=== PATIENT | female | born 1995 | race African-American/Black ===

== ENCOUNTER 2023-03-06 19:06 | Emergency (ER) | payer BC, SELFPAY ==
[2023-03-06] VITALS (9 sets, daily range): BP systolic 118–136; BP diastolic 68–97; PULSE 65–88; RESP 16; TEMP 36.2–36.7; O2SAT 98–100; BMI 23.2
--- NOTE | 2023-03-06 19:33 | ED.GENADULT ---
HPI - General Adult General Time Seen by Provider: 19:33 Date Seen: 03/06/23 Chief complaint: Nausea/Vomiting Stated complaint: 10 wks , nausea and vomiting Time Seen by Provider: 03/06/23 19:33 Source: patient and RN notes reviewed Mode of arrival: ambulatory Limitations: no limitations History of Present Illness HPI narrative: This 27-year-old female is coming in about 10 weeks , started with severe nausea vomiting yesterday. She has had prior pregnancies and states she has had hyperemesis throughout both pregnancies. She states this is very typical for her. She does not have an OB appointment scheduled until the 16 of this month. She states [facility] typically has not worked for her but does not remember any of the things that they tried for her. She cannot keep anything down, is her other child currently. She states she is getting cramps she believes from being dehydrated. Denies any urinary symptoms, no fevers. No abdominal pain. No cramping or vaginal discharge, no vaginal bleeding. I did look in our system and does not look like she is seen our obstetrical department before. Related Data Home Medications Medication Instructions Recorded Confirmed No Known Home Medications 03/06/23 03/06/23 Allergies Allergy/AdvReac Type Severity Reaction Status Date / Time No Known Drug Allergies Allergy Verified 03/06/23 19:23 Review of Systems Status of ROS: Reports: 6 or more systems reviewed and unremarkable except as noted in History and below [facility] Medical History (Updated 03/06/23 @ 23:17 by Anjana Young MD) No significant past medical history Surgical History No significant past surgical history Social History Smoking Status: Never smoker Second hand tobacco smoke exposure: No How often do you have a drink containing alcohol: never How often do you have six or more drinks on one occasion: Never AUDIT-C Alcohol total score: 0 Non-prescribed substance use: denies use Exam Const: Vital Signs, click to edit/add: Vital Signs - 24 hr 03/06/23 19:28 03/06/23 19:35 03/06/23 21:22 Temperature 97.1 F L 98.0 F Pulse Rate Pulse Rate [Right Pulse Oximeter] 82 79 Respiratory Rate 16 16 Blood Pressure Blood Pressure [Ri ght Upper Arm] 118/68 118/74 Pulse Oximetry 99 99 100 Oxygen Delivery Me thod Room Air Room Air 03/06/23 21:22 03/06/23 21:32 03/06/23 21:59 Temperature Pulse Rate 65 73 74 Pulse Rate [Right Pulse Oximeter] Respiratory Rate 16 16 16 Blood Pressure 119/74 136/97 H 123/87 Blood Pressure [Ri ght Upper Arm] Pulse Oximetry 100 99 100 Oxygen Delivery Me thod 03/06/23 22:02 Temperature Pulse Rate 88 Pulse Rate [Right Pulse Oximeter] Respiratory Rate 16 Blood Pressure 125/81 Blood Pressure [Ri ght Upper Arm] Pulse Oximetry 100 Oxygen Delivery Me thod Patient is throwing up bilious material before medicines were given. She is alert, interactive but looks like she does not feel well. Speech is normal, certainly pleasant 27-year-old female. Sclera clear, conjugate gaze. Lungs are clear, no wheezing crackles. CV regular rate and rhythm, no murmur, normal S1-S2, no S3-S4. Abdomen is soft, nontender nondistended, no rebound or guarding. Documenting provider has reviewed patient's vital signs: yes Course Reevaluation(s) Time of Reevaluation #1: 22:01 Reevaluation #1: Patient has received total of 2L fluids, 8mg total IV Zofran in 2 doses plus 25mg IV diphenhydramine. Did get up to to restroom after 3 L was initiated, this was done as her bicarb was low at 18. She is still feeling nauseated, will see if she can tolerate 10 mg oral metoclopramide. Did review some current literature which is recommending metoclopramide for treatment this early in . Time of Reevaluation #2: 23:16 Reevaluation #2: Patient is up, ambulatory, does look a bit better. Went over discharge plan with her, it is absolutely necessary that she contact her OB Clinic 1st thing in the morning. Vital Signs Vital signs: Initial Vital Signs Temperature 97.1 F L 03/06/23 19:28 Temperature Source Temporal Artery Scan 03/06/23 19:28 Pulse Rate 82 03/06/23 19:28 Pulse Rhythm Regular 03/06/23 19:28 Respiratory Rate 16 03/06/23 19:28 Blood Pressure 118/68 03/06/23 19:28 Blood Pressure Mean 84 03/06/23 19:28 Blood Pressure Position Sitting 03/06/23 19:28 Pulse Oximetry 99 03/06/23 19:28 Oxygen Delivery Method Room Air 03/06/23 19:28 Vital Signs Temperature 97.1 F L 03/06/23 19:28 Pulse Rate 82 03/06/23 19:28 Respiratory Rate 16 03/06/23 19:28 Blood Pressure 118/68 03/06/23 19:28 Pulse Oximetry 99 03/06/23 19:28 Oxygen Delivery Method Room Air 03/06/23 19:28 Temperature 98.0 F 03/06/23 21:22 Pulse Rate 88 03/06/23 22:02 Respiratory Rate 16 03/06/23 22:02 Blood Pressure 125/81 03/06/23 22:02 Pulse Oximetry 100 03/06/23 22:02 Oxygen Delivery Method Room Air 03/06/23 21:22 Medical Decision Making Lab Data Lab results reviewed: Yes I reviewed the patient's lab results Labs: Lab Results 03/06/23 Range/Units 19:36 WBC 12.01 H (4.50-11.00) K/uL RBC 4.84 (4.00-5.20) m/uL Hgb 14.2 (12.0-16.0) gm/dL Hct 41.1 (33.0-51.0) % MCV 85 (80-100) fL MCH 29 (26-34) pg MCHC 35 (32-36) gm/dL RDW Coeff of [place]el[place] 12.2 (11.5-15.5) % Plt Count 331 (140-440) K/uL Neut % (Auto) 76.1 H (42.0-72.0) % Lymph % (Auto) 20.1 (20-44) % [place] % (Auto) 3.3 (0.0-11.0) % Eos % (Auto) 0.2 (0.0-7.0) % Baso % (Auto) 0.1 (0.0-3.0) % Neut # (Auto) 9.10 H (1.7-7.0) K/uL Lymph # (Auto) 2.40 (0.90-2.90) K/uL [place] # (Auto) 0.40 (0.00-0.90) K/UL Eos # (Auto) 0.00 (0.00-0.50) K/uL Baso # (Auto) 0.00 (0.00-0.30) K/uL Abs Immat Gran (auto) 0.00 (0.00-0.30) K/uL Imm/Tot Granulo (auto) 0.2 % Sodium 138 (135-149) mmol/L Potassium 3.2 L (3.6-5.1) mmol/L Chloride 106 (96-114) mmol/L Carbon Dioxide 18 L (20-32) mmol/L Anion Gap 14 (7-15) mEq/L BUN 9 (5-24) mg/dL Creatinine 0.3 L (0.5-1.5) mg/dL Estimated Creat Clear 243.24 Estimated GFR 149 ml/min Glucose 105 (60-115) mg/dL Calcium 8.4 (8.4-10.6) mg/dL Urine Color Yellow (Yellow) Urine Appearance Clear (Clear) Urine pH 7.0 (5.0-8.5) Ur Specific [place] >= 1.030 (1.000-1.030) Urine Protein Negative (Negative) Urine Glucose (UA) Negative (Negative) Urine Ketones 4+ A (Negative) Urine Blood Negative (Negative) Urine Nitrite Negative (Negative) Urine Bilirubin Negative (Negative) Urine Urobilinogen 0.2 (0.2-1.0) Ur Leukocyte Esterase Negative (Negative) Urine RBC 0-2 (0-2) Urine WBC 0-2 (0-5) Ur Squamous Epith Cells Few (None-Few) Urine Bacteria None (None) Discharge Plan Discharge Clinical Impression: Nausea and vomiting during prior to 22 weeks gestation, Acute dehydration Patient Disposition: Home, Self-Care Condition: Stable Instructions: Nausea and Vomiting in (ED), Hyperemesis Gravidarum (ED) Additional Instructions: Can try oral Benadryl at home overnight. It is imperative that you contact your OB doctor tomorrow to get medications and have further plans for management of this for you. You may need ongoing IV fluids, certainly are going to need ongoing medications which her OB will need to provide you. Activity Level: Activity as Tolerated Prescriptions: No Action No Known Home Medications Follow Up/Referrals: Provider,Not a Local [Primary Care Provider] - Stand Alone Forms: Silent Communication Info Instructions
[2023-03-06] MEDS: ONDANSETRON 2 MG/ML inj 4 MG IVP ×2 (19:35→20:11)
[2023-03-06] MEDS: 0.9 % SODIUM CHLORIDE 1000 ml 1,000 ML IV (19:35)
[2023-03-06] MEDS: LACTATED RINGERS 1000 ML 1,000 ML IV ×2 (19:45→21:55)
[2023-03-06 20:01] LABS: Basophils Percent Auto 0.1 % (0.0-3.0); Eosinophils Percent Auto 0.2 % (0.0-7.0); Hematocrit 41.1 % (33.0-51.0); Hemoglobin* 14.2 gm/dL (12.0-16.0); Immature Granulocytes Pct Auto 0.2 %; Lymphocytes Percent Auto 20.1 % (20-44); Mean Corpuscular HGB Conc 35 gm/dL (32-36); Mean Corpuscular Hemoglobin 29 pg (26-34); Mean Corpuscular Volume 85 fL (80-100); Monocytes Percent Auto 3.3 % (0.0-11.0); Neutrophils Percent Auto 76.1 % (42.0-72.0); Platelet Count* 331 K/uL (140-440); RDW Coefficient of Variation % 12.2 % (11.5-15.5); Red Blood Count 4.84 m/uL (4.00-5.20); White Blood Count* 12.01 K/uL (4.50-11.00)
[2023-03-06 20:29] LABS: Slide Review Reflex No
[2023-03-06] MEDS: diphenhydrAMINE 50 MG/ML inj 25 MG IVP (20:55)
[2023-03-06 21:09] LABS: Chloride* 106 mmol/L (96-114)
[2023-03-06 21:10] LABS: Potassium* 3.2 mmol/L (3.6-5.1); Sodium* 138 mmol/L (135-149)
[2023-03-06 21:13] LABS: Anion Gap 14 mEq/L (7-15); Blood Urea Nitrogen* 9 mg/dL (5-24); Calcium* 8.4 mg/dL (8.4-10.6); Carbon Dioxide* 18 mmol/L (20-32); Creatinine* 0.3 mg/dL (0.5-1.5); Est. Creatinine Clearance* 243.24; Estimated Glomerular Filt Rate 149 ml/min; Glucose* 105 mg/dL (60-115)
[2023-03-06 22:00] LABS: Appearance Urine Clear (Clear); Bilirubin Urine Negative (Negative); Blood Urine Negative (Negative); Color Urine Yellow (Yellow); Glucose Urine Negative (Negative); Ketones Urine 4+ (Negative); Leukocyte Esterase Urine Negative (Negative); Nitrite Urine Negative (Negative); Protein Urine Negative (Negative); Specific Gravity Urine >= 1.030 (1.000-1.030); Urobilinogen Urine 0.2 (0.2-1.0)
[2023-03-06] MEDS: METOCLOPRAMIDE HCL 5 MG/ML INJ 10 MG IVP (22:13)
[2023-03-06 22:25] LABS: RBC Urine 0-2 (0-2); Squamous Epithelial Cell Urine Few (None-Few); WBC Urine 0-2 (0-5)
== END 2023-03-06 23:40 | disposition home or self-care (01) ==
PROVIDERS: Emergency Provider Family Medicine
DX: R11.2 Nausea with vomiting, unspecified (principal); E86.0 Dehydration; Z3A.10 10 weeks gestation of pregnancy
CPT/HCPCS: 36415; 80048; 81001; 85025; 94761; 96374; 96375; 99283; 99284; J1200; J2405; J2765; J7030; J7120

== ENCOUNTER 2023-09-04 11:03 | Outpatient (CLI) | payer BC, SELFPAY | END 2023-09-04 11:04 | disposition home or self-care (01) | LOC: NFLDREF 11:18 | PROVIDERS: Visit Provider Advanced Practice Midwife | DX: Z34.93 Encounter for supervision of normal pregnancy, unspecified, third trimester (principal); Z67.91 Unspecified blood type, Rh negative | CPT/HCPCS: J2791 ==

== ENCOUNTER 2023-09-18 10:55 | Outpatient (CLI) | payer BC, SELFPAY ==
[2023-09-19 08:05] LABS: Strep B DNA Probe POSITIVE (Negative)
[2023-09-19 08:18] LABS: Strep B Susceptibility Needed? No
== END 2023-09-18 10:56 | disposition home or self-care (01) ==
LOC: NFLDREF 10:55
PROVIDERS: Visit Provider Advanced Practice Midwife
DX: Z34.93 Encounter for supervision of normal pregnancy, unspecified, third trimester (principal)
CPT/HCPCS: 87081; 87653

== ENCOUNTER 2023-10-02 23:25 | Outpatient (CLI) | payer BC, SELFPAY ==
[2023-10-02 23:34] VITALS: BP 133/79; PULSE 99
[2023-10-02 23:45] VITALS: PULSE 84; O2SAT 97
[2023-10-02 23:50] VITALS: PULSE 101; O2SAT 98
[2023-10-02 23:52] VITALS: PULSE 98; O2SAT 98
[2023-10-03 00:04] VITALS: BMI 32.5
--- NOTE | 2023-10-03 00:04 | W.PM.LDBA ---
Subjective History of Present Illness Date Seen: 10/02/23 Narrative: Patient is being admitted to Labor and Delivery for spontaneous labor. She is a 28 year old at 37.0 weeks gestation. Her full history and physical was dictated by Cristopher Kirkpatrick CNM on 10/02/23. Please see this for details. She had been jacob some all day including at her clinic appointment today. She was nervous about timing given her history or rapid labors and deliveries. She decided to be evaluated this evening and has made some cervical change since her evaluation earlier today. She is breathing through most contractions but is jacob pretty irregularly at this time. If contractions decrease of do not increase we will reevaluate admission and plan given that she is 37.0 weeks. She plans a water . She is GBS positive but decline prophylactic treatment. I reviewed in depth risks to baby of not treating and she is still declining. Also discussed recommendation for baby to be hospitalization for 36-48 hours after delivery if untreated. Discussed that would readdress treatment if her labor is longer in length than her previous or she SROM before the 2nd stage of labor. Specific Issues/Plans Transfer at 33 weeks H & P 10/02/23 by Cristopher Kirkpatrick # Hx of precipitous delivery with first # Hx of depression, including PP. Records indicate a previous hospitalization for mood also. # RH neg, rhogam given at 33 weeks #hx of asthma, resolved when she stopped smoking # GBS positive Ampicillin in labor #Dating by 2nd trimester US at 19.6 weeks per [facility] Records from [facility]: Precipitous delivery with first Dated by u/s, done 06/04/23, at 19.6 weeks, JACOBO 10/23/23 Does indicate an early u/s was done 03/07/23, with an JACOBO 10/27/23 By LMP of 12/16/22, JACOBO 09/22/23 remote hx of THC, last use 2017 Hx of depression, prior meds include prozac and sertaline, does not feel either worked well. Started on Welbutrin in 2021. hx of prior hospitalization for mood. Hx of PPD ?OB Labs as noted in note, do not have records from initial care:?Blood type: O-, antibody screen neg?at 28 weeks, Anti D pos at NOB ?Hgb : 12.9?Rubella: Immune?RPR: non-reactive?HBsAg: negative?(03/13/23)?? Hep C neg ?HIV: negative?GC/Chlamydia: negative/negative??? Nips Neg, male ?? 28 week labs, 08/06/23 1 hr GTT 87 Hgb 11.3 plts: 342 syphilis neg Declined tdap Rhogam not administered Pap 01/15/22 NIL Growth u/s done 06/04/23, JACOBO 10/27/23, posterior placenta, normal fluid, EFW 75% 06/12/23 Anatomy scan: JACOBO 10/23/23, vertex, posterior placenta, no previa. Normal fluid. EFW 37.4%. No abnormalities noted. COVID: declined Flu: declined TDAP: declined OB - Problem Based A/P Additional Plan (1) Pain during labor: Status: Acute (2) History of precipitous labor and delivery: Status: Acute (3) Positive GBS test: Status: Acute (4) Rh negative status during : Status: Acute Plan ASSESSMENT:? at 37.0 weeks gestation? GBS positive? complicated by: GBS positive, hx precipitous deliveries, RN negative, dating by 2nd trimester US? Late labor ?? PLAN:? 1. Reviewed recommendation for antibiotic prophylaxis treatment per protocol risks and benefits. Declines treatment.? 2. Desires water . Consent signed. Hep C negative.? 4. Candidate for analgesia of choice. Planning unmedicated .? 6. Anticipate ? 7. Expectant management at this time.? 8. No IV needed at this time and intermittent monitoring per policy. Consider IV or change in monitoring plan with changes in patient condition. ? Delivery/Labor/Induction Plan Plan: expectant management OB Result Labs Blood Type: 0 (-) negative Rubella: nonimmune RPR/VDLR: nonreactive GBS Status: positive OB Exam Physical Exam Vital signs: Pulse BP Pulse Ox 99 133/79 98 10/02/23 23:34 10/02/23 23:34 10/02/23 23:52 Narrative: Psychiatric:? Alert and oriented x3? HEENT:? Normocephalic, atraumatic? Neck:? Supple without adenopathy or thyromegaly? Lungs:? Clear to auscultation bilaterally? Heart:? Regular rate and rhythm, no murmur, rub or gallop? Abdomen:? Soft, nontender, and gravid? Extremities:? No edema or erythema? Detailed Labor and Delivery Exam Patient Gravid: Yes Dilation (cm): 4 (3-4cm per RN exam) Effacement (%): 70 Cervix position: anterior Contraction Frequency: 5-10 Tachysystole: No Contraction intensity: Moderate Fetus (Single) Station: 0 Amniotic Membrane Status: intact Heart Rate Baseline: 130 Monitor Accelerations: Present Monitor Decelerations: None Nursing Home Variability: Moderate (6-25)
--- NOTE | 2023-10-03 03:05 | PM.OBPNL ---
Subjective Date Seen: 10/03/23 Narrative: Shortly after admission Kerry's contractions decreased in frequency and intensity. She did many position changes and the labor warm up circuit with no change in contractions. About 3 hours after she was initially checked she was rechecked by the same RN and found to be unchanged. She decided that she would like to go home. Reviewed labor precautions and encouraged her to go home and get a good night sleep. Questions answered. Objective Vital Signs: Last Vital Signs Pulse 99 10/02/23 23:34 BP 133/79 10/02/23 23:34 Pulse Ox 98 10/02/23 23:52 Pelvic Exam Comments: cervical exam unchanged. Contractions Monitor mode: External Contraction Frequency: 7-10 per TOCO and pt report Contraction pattern: Irregular Contraction intensity: Mild Assessment Station: 0 Heart Rate Baseline: 130 Skilled Nursing Variability: Moderate (6-25) Monitor Accelerations: Present Monitor Decelerations: None Plan Plan: Discharge home. Labor precautions reviewed. Return to clinic for previously scheduled appointment and sooner if needed.
--- NOTE | 2023-10-03 03:34 | PC.OBNST ---
The provider's electronic signature indicates the NST is reactive/appropriate for gestational age. *Note to provider: If an addendum is required, open the patient's chart and click on the note under the Nurse/Allied Health tab.
== END 2023-10-03 03:18 | disposition home or self-care (01) ==
LOC: OB OUT 23:27 → OB 23:28
PROVIDERS: Visit Provider Advanced Practice Midwife
DX: O47.1 False labor at or after 37 completed weeks of gestation (principal); Z3A.37 37 weeks gestation of pregnancy
CPT/HCPCS: 59025; 86592; G0463

== ENCOUNTER 2023-10-09 18:01 | Outpatient (CLI) | payer BC, SELFPAY ==
--- NOTE | 2023-10-09 18:19 | US_ITS ---
Patient: [facility] Facility:?[facility] Patient ID:?[id number] Site Patient ID:?[id number] Site :?[id number] Study:?US-OB Pelvis OB LIMITED-10/09/2023 7:12:34 PM Ordering Physician:?ANDRA PRADO M.D. Final Report: INDICATION: Possible rupture of membranes TECHNIQUE: Ultrasound OB pelvis transabdominal, limited. COMPARISON: None. FINDINGS: Sonographic imaging demonstrates a single living intrauterine gestation. Fetus demonstrates a regular cardiac rate of 169 beats per minute. Fetus has a cephalic orientation. Amniotic fluid volume appears at the upper limits of normal measuring 24.8 cm. IMPRESSION.: Viable intrauterine . No evidence for rupture of membranes. Amniotic fluid volume is at the upper limits of normal measuring 24.8 cm. Query mild polyhydramnios. Dictated by Adria Yan MD @ 10/09/2023 7:45:47 PM Signed by:?Adria Yan MD @10/09/2023 7:45:47 PM (Electronic Signature)
[2023-10-09 18:28] VITALS: BP 114/70; PULSE 101; PULSE 96; O2SAT 98
--- NOTE | 2023-10-09 19:52 | PC.OBNST ---
NST Note NST Note Start: 10/09/23 18:14 Freq: ONCE Status: Active Protocol: Document 10/09/23 18:45 BRYNN (Rec: 10/09/23 19:52 JRGisele [id number]) NST Note 3 Para (# of births) 2 EDC 10/23/23 Gestational Age In Weeks & Days 38 Weeks & 0 Days High Risk Factors High Blood Pressure - Preexisting Other Complaints Sent from clinic for US for PARAG due to neg. amnisure Reactive Yes Appropriate for Gestational Age Yes RN Cristopher Deleon RN Date 10/09/23 Reactive Yes Appropriate for Gestational Age Yes JAKUB Balderrama RN Date 10/09/23 OB NST charge Yes Complete NST Note via Write Note Yes The provider's electronic signature indicates the NST is reactive/appropriate for gestational age. *Note to provider: If an addendum is required, open the patient's chart and click on the note under the Nurse/Allied Health tab.
--- NOTE | 2023-11-14 12:45 | PC.OBNST ---
NST Note NST Note Start: 10/09/23 18:14 Freq: ONCE Status: Discharge Protocol: Document 10/09/23 18:45 BRYNN (Rec: 10/09/23 19:52 Gisele [id number]) NST Note 3 Para (# of births) 2 EDC 10/23/23 Gestational Age In Weeks & Days 38 Weeks & 0 Days High Risk Factors High Blood Pressure - Preexisting Other Complaints Sent from clinic for US for PARAG due to neg. amnisure Reactive Yes Appropriate for Gestational Age Yes RN Cristopher Deleon RN Date 10/09/23 Reactive Yes Appropriate for Gestational Age Yes JAKUB Balderrama RN Date 10/09/23 OB NST charge Yes Complete NST Note via Write Note Yes The provider's electronic signature indicates the NST is reactive/appropriate for gestational age. *Note to provider: If an addendum is required, open the patient's chart and click on the note under the Nurse/Allied Health tab.
== END 2023-10-09 19:15 | disposition home or self-care (01) ==
LOC: OB OUT 18:03 → OB 18:04
PROVIDERS: Visit Provider Obstetrics & Gynecology
DX: O10.913 Unspecified pre-existing hypertension complicating pregnancy, third trimester (principal); Z3A.38 38 weeks gestation of pregnancy
CPT/HCPCS: 59025; 76815; G0463

== ENCOUNTER 2023-10-16 19:57 | Inpatient (IN) | payer BC, SELFPAY ==
[2023-10-16] VITALS (10 sets, daily range): BP systolic 130–155; BP diastolic 73–106; PULSE 74–100; TEMP 36.6–36.7; BMI 32.9
--- NOTE | 2023-10-16 21:09 | P.LDBA_ITS ---
Subjective History of Present Illness Date Seen: 10/16/23 Narrative: Late documentation due to precipitous delivery: Patient is being admitted to Labor and Delivery for active labor at term. She is a 28 year old at 39.0 weeks gestation. Her full history and physical was dictated by Cristopher Kirkpatrick CNM on 10/02/23. Please see this for details. Myrna was seen today in clinic where she had a membrane sweep. After she ate supper this evening around 1900 she started to feel strong contractions. Given her history of fast deliveries she came as soon as she could when she arrived on the unit she was jacob regularly. Her cervical exam showed her to be 9.5cm/100%/+1. Discussed recommended prophylactic antibiotics for positive GBS status. She declines due to her history of fast deliveries and advanced dilation. Did discuss that they would strongly recommend hospitalization for 36-48 hours after for baby to monitor vitals and she is agreeable to this. Elevated blood pressures after admission. Will continue to monitor and consider labs if they continue to be elevated. Specific Issues/Plans Transfer at 33 weeks H & P 10/02/23 by Cristopher Kirkpatrick # Hx of precipitous delivery with first # Hx of depression, including PP. Records indicate a previous hospitalization for mood also. # RH neg, rhogam given at 33 weeks #hx of asthma, resolved when she stopped smoking # GBS positive Ampicillin in labor #Dating by 2nd trimester US at 19.6 weeks per [facility] Records from [facility]: Precipitous delivery with first Dated by u/s, done 06/04/23, at 19.6 weeks, JACOBO 10/23/23 Does indicate an early u/s was done 03/07/23, with an JACOBO 10/27/23 By LMP of 12/16/22, JACOBO 09/22/23 remote hx of THC, last use 2017 Hx of depression, prior meds include prozac and sertaline, does not feel either worked well. Started on Welbutrin in 2021. hx of prior hospitalization for mood. Hx of PPD ?OB Labs as noted in note, do not have records from initial care:?Blood type: O-, antibody screen neg?at 28 weeks, Anti D pos at NOB ?Hgb : 12.9?Rubella: Immune?RPR: non-reactive?HBsAg: negative?(03/13/23)?? Hep C neg ?HIV: negative?GC/Chlamydia: negative/negative??? Nips Neg, male ?? 28 week labs, 08/06/23 1 hr GTT 87 Hgb 11.3 plts: 342 syphilis neg Declined tdap Rhogam not administered Pap 01/15/22 NIL Growth u/s done 06/04/23, JACOBO 10/27/23, posterior placenta, normal fluid, EFW 75% 06/12/23 Anatomy scan: JACOBO 10/23/23, vertex, posterior placenta, no previa. Normal fluid. EFW 37.4%. No abnormalities noted. COVID: declined Flu: declined TDAP: declined OB - Problem Based A/P Additional Plan (1) Positive GBS test: Status: Acute (2) History of precipitous labor and delivery: Status: Acute (3) Pain during labor: Status: Acute (4) Rh negative status during : Status: Acute Plan ASSESSMENT:? at 38.0 weeks gestation? GBS positive? complicated by GBS positive, Rh negative blood type.? Slightly elevated BP on admit? Spontaneous labor ?? PLAN:? 1. Antibiotic prophylaxis treatment per protocol?recommended. She declines with her history of fast deliveries and advanced dilation. Discussed recommended 36- 48 hour stay after delivery for baby monitoring. 2. Desires water . Consent signed. Hep C negative.? 4. Candidate for analgesia of choice. Planning unmedicated .? 5. Monitor blood pressures. Consider labs if continue to be elevated.? 6. Anticipate ? 7. Expectant management at this time.? 8. Intermittent auscultation after reactive tracing.? ? Delivery/Labor/Induction Plan Plan: expectant management OB Result Labs Blood Type: 0 (-) negative Rubella: immune RPR/VDLR: nonreactive GBS Status: positive OB Exam Physical Exam Vital signs: Pulse BP 86 141/79 H 10/16/23 20:58 10/16/23 20:58 Narrative: Vitals per EMR? Psychiatric:? Alert and oriented x3? HEENT:? Normocephalic, atraumatic? Neck:? Supple without adenopathy or thyromegaly? Lungs:? Clear to auscultation bilaterally? Heart:? Regular rate and rhythm, no murmur, rub or gallop? Abdomen:? Soft, nontender, and gravid? Extremities:? No edema or erythema? Detailed Labor and Delivery Exam Patient Gravid: Yes Dilation (cm): 9 (9.5cm) Effacement (%): 100 Contraction Frequency: 1.5-3 min Contraction intensity: Strong/Firm Fetus (Single) Station: +1 Amniotic Membrane Status: intact Heart Rate Baseline: 135 Monitor Accelerations: Present Monitor Decelerations: None Corrective And Manual Arts Therapist Variability: Moderate (6-25)
--- NOTE | 2023-10-16 21:16 | W.PM.OBVAGDE ---
OB Procedure Vag Delivery Mother Details Mother Details: The patient is a 28 year-old, 3, Para 2, admitted on 10/16/23 at 39.0 Days gestation. : 3 Para: 2 Weeks Gestation: 39.0 Admission Date: 10/16/23 Additional Details Amniotic Membrane Status: SROM Amniotic Membrane Rupture Date: 10/16/23 Amniotic Membrane Rupture Time: 20:27 Amniotic Membrane Fluid Description: Clear Analgesia/Anesthesia Type: None Waterbirth: Yes Pitcoin: No Intrapartal Events: Precipitous Labor <3 Hrs Labor Onset: 18:45 Complete: 20:28 (assumed with pushing) Pushin:28 Heart: heart tones during second stage were not obtained by doppler due to short second stage. She was removed from external monitors at 2023 after a category 1 tracing was obtained. Delivery Details Delivery Date: 10/16/23 Delivery Time: 20:31 Route of delivery: Infant Gender: Male Viability: Alive; Heart Rate Present Position at Delivery: OA Delivery Details: Patient was admitted for active labor at term and progressed normally. The tub was being filled as soon as she arrived. With a reactive tracing she entered the tub once it was filled. Shortly after getting into the tub SROM with clear fluid and she felt an urge to push. She pushed very effectively with great control. SROM noted at 2026 with clear fluid. Patient was assumed to be complete with pushing at 2027. of a viable male at 2030 squatting in the tub. Vertex delivered OA. No nuchal cord or shoulder. The cord was noted to be wrapped around a foot after delivery. Body delivered easily and without incident. passed to mothers abdomen with a vigorous cry. Cord was clamped and cut at > 5 minutes. APGARS were 8 at one minute and 8 at five minutes respectively. Mouth was bulb suctioned. Intact placenta with a 3 vessel cord delivered spontaneously at 2045. Fundus firm. An intact perineum was identified after through inspection was performed. QBL 135mL in the drape and clot from the tub that was weighed. EBL 100mL in the tub. Total of 235mL blood loss. Mother and baby stable; mother plans to breastfeed. Infant weight pending.? 1 Minute Interval Total Score: 8 5 Minute Interval Total Score: 8 Additional Details Shoulder Dystocia: No Placenta Delivery Time: 20:46 Placental Delivery Description: Spontaneous Procedure Done: Global Blood Loss: 235 Laceration: None Episiotomy Description: None Blood Loss Measurement Type: QBL Bakri Used: No Sponge/Need Count Correct: Yes Cord Vessel Description: 3 Vessels and Around Extremity (around right foot x1) Event Summary Status: Mother and were stable after delivery. Disposition: floor
[2023-10-16 21:32] LABS: Hematocrit 32.7 % (33.0-51.0); Hemoglobin* 10.8 gm/dL (12.0-16.0); Mean Corpuscular HGB Conc 33 gm/dL (32-36); Mean Corpuscular Hemoglobin 27 pg (26-34); Mean Corpuscular Volume 80 fL (80-100); Platelet Count* 299 K/uL (140-440); Red Blood Count 4.07 m/uL (4.00-5.20); White Blood Count* 14.74 K/uL (4.50-11.00)
[2023-10-16 21:36] LABS: Slide Review Reflex No
[2023-10-16 21:50] LABS: Alanine Aminotransferase* 14 U/L (4-35); Aspartate Amino Transferase* 23 U/L (12-35); Blood Urea Nitrogen* 13 mg/dL (5-24); Creatinine* 0.5 mg/dL (0.5-1.5); Est. Creatinine Clearance* 138.57; Estimated Glomerular Filt Rate 131 ml/min
[2023-10-17 04:45] VITALS: BP 106/68; PULSE 80; RESP 16; TEMP 36.6; O2SAT 98
--- NOTE | 2023-10-17 07:34 | PM.OBPNVD1 ---
OB - PN:Subj Subjective Date Seen: 10/17/23 Patient comments OB post-: pain well controlled, flatus present and other (Having some mild back pain) status: and doing well feeding status: exclusively Narrative: Kerry is a 28 y.o. G 3 P 3 who was admitted to [facility] & [facility] for spontaneous onset of labor. ?She had a NVD that was uncomplicated. Her blood pressure was elevated during labor but has been normal since end of recovery. She has not met 4 hours of elevated BP criteria for GHTN at this time. The patient feels well. ?The pain is well controlled with current medications. ?She has no new complaints. ?She is breast feeding and reports things are going well. the patient has done well.? Vitals have been stable.? She has remained afebrile.? Has a good appetite, is tolerating a general diet. ?She is voiding without difficulty.? She is passing gas and has not had a bowel movement.? She is ambulating and denies any dizziness.? Has small amount of rubra lochia. Problems: none OB - PN: Obj Exam Physical Exam: Vital signs: Temp Pulse Resp BP Pulse Ox O2 Del Method 97.9 F 80 16 106/68 98 Room Air 10/17/23 04:45 10/17/23 04:45 10/17/23 04:45 10/17/23 04:45 10/17/23 04:45 10/17/23 04:45 Narrative: GENERAL APPEARANCE:? normal affect, alert, no distress MOOD:? appropriate CHEST:? clear to auscultation HEART:? regular rate and rhythm ABDOMEN:? soft, non-tender the uterine fundus is At Umbilicus, Midline and is appropriate for the stage of recovery. PERINEUM:? mild edema of the perineum EXTREMITIES:? normal and no edema OB - PN: Obj Data Labs Labs: Laboratory Results - last 24 hr 10/16/23 21:27 WBC 14.74 H RBC 4.07 Hgb 10.8 L Hct 32.7 L MCV 80 MCH 27 MCHC 33 Plt Count 299 BUN 13 Creatinine 0.5 Estimated Creat Clear 138.57 Estimated GFR 131 AST 23 ALT 14 OB - PN: A/P Delivery Assessment and Plan (1) care and examination immediately after delivery: Status: Acute (2) Rh negative status during : Status: Acute Assessment and Plan: Baby Rh +, patient needs Rhogam (3) Lactating mother: Status: Acute (4) Elevated BP without diagnosis of hypertension: Status: Acute Plan day: 1 Plan: routine care Comments: plan: , may see if needed Hgb 10.8. Elevated BP without diagnosis of HTN Labs WNL Continue to monitor BP while inpatient. If another elevated bp, she would meet criteria for GHTN. Anticipate discharge tomorrow.
[2023-10-17 07:35] VITALS: BP 126/80; PULSE 85; RESP 16; TEMP 36.9; O2SAT 98
[2023-10-17 12:37] VITALS: BP 112/73; PULSE 88; RESP 16; TEMP 36.8; O2SAT 99
[2023-10-17 16:24] VITALS: BP 109/70; PULSE 97; RESP 16; TEMP 36.5; O2SAT 98
[2023-10-17] MEDS: ACETAMINOPHEN 500 MG TABLET 1000 MG PO (16:39)
[2023-10-17 20:08] VITALS: BP 107/70; PULSE 94; RESP 16; TEMP 36.7
[2023-10-18 05:06] VITALS: BP 99/64; PULSE 94; TEMP 36.5
--- NOTE | 2023-10-18 07:43 | PM.OBDSVD1 ---
DS: Providers Provider Date Seen: 10/18/23 Date of admission: 10/16/23 19:57 Primary care physician: Not a Local Provider Admitting Clinician: Jad Ma CNM Attending Physician on discharge: Yasmeen Jasso CNM Date of Discharge: 10/18/23 DS: Diagnosis Discharge Diagnosis (1) care and examination immediately after delivery: Status: Acute (2) Lactating mother: Status: Acute (3) Elevated BP without diagnosis of hypertension: Status: Acute Exam Narrative: Exam Narrative: GENERAL APPEARANCE:? normal affect, alert, no distress MOOD:? appropriate CHEST:? clear to auscultation HEART:? regular rate and rhythm ABDOMEN:? soft, non-tender the uterine fundus is firm At Umbilicus, Midline and is appropriate for the stage of recovery. PERINEUM:? mild edema of the perineum, intact perineum. EXTREMITIES:? normal and trace edema Const: Vital Signs, click to edit/add: Vital Signs - 24 hr 10/17/23 12:37 10/17/23 16:24 10/17/23 20:08 Temperature 98.2 F 97.7 F 98.0 F Pulse Rate [Pulse Oximeter] 88 97 94 Respiratory Rate 16 16 16 Blood Pressure [Ri ght Arm] 112/73 109/70 107/70 Pulse Oximetry 99 98 Oxygen Delivery Me thod Room Air Room Air 10/18/23 05:06 Temperature 97.7 F Pulse Rate [Pulse Oximeter] 94 Respiratory Rate Blood Pressure [Ri ght Arm] 99/64 Pulse Oximetry Oxygen Delivery Me thod Documenting provider has reviewed patient's vital signs: yes OB - DS: Summary Hospital Course Hospital Course: Kerry is a 28 y.o. who was admitted to [facility] & [facility] for labor. ?She had an uncomplicated NVD.?The patient feels well. ?The pain is well controlled with current medications. ?She has no new complaints. ?She is breast feeding and reports things are going well.? the patient has done well.? Vitals have been stable.? She has remained afebrile.? Has a good appetite, is tolerating a general diet. ?She is voiding without difficulty.? She is passing gas and has not had a bowel movement.? She is ambulating and denies any dizziness.? Has Small amount of rubra lochia. ?She is undecided about what she is planning for prevention. Peripartum Data Infant delivery method: Vaginal Laceration description: None complications: none Weinert Gender: Male Infant Discharge Plan: Home Status at Discharge Functional status at discharge: independent ambulation Overall status at discharge: patient is progressing back to baseline Time Spent with Patient Time attestation: Total time spent providing and/or coordinating discharge services: Time spent: Less than 30 minutes Discharge Plan Discharge Disposition: Home, Self-Care Date of Admission: 10/16/23 19:57 Attending Provider on Discharge: Jad Ma Primary Care Provider: Provider,Not a Local Condition: Stable Anticipated Discharge Date/Time: 10/18/23 12:00 Discharge Medications: New acetaminophen 500 mg Tablet 1,000 mg PO Q6H PRNQty: 0 0RF docusate sodium 100 mg Capsule 100 mg PO DAILY Qty: 90 2RF ibuprofen 600 mg Tablet 600 mg PO Q6H PRNQty: 60 0RF Discharge Orders: Discharge Order (Routine); Ordered 10/18/23 Ordered By: Jad Ma Patient Education: OB Over the Counter Medication Information, OB Vaginal/Breast Feeding Additional Instructions: Discharge instructions were reviewed with the patient including signs and symptoms of infection and home going medications Nothing vaginally for 6 weeks: no tampons or intercourse Off Work or School for 6 weeks 2-week visit: discuss feeding concerns, review control options and screen for anxiety/depression. 6-week visit for an annual exam. consultation services are available to all mothers and babies for the first year after delivery.? To make an appointment, please call [phone]. Activity Level: Activity as Tolerated Discharge Diet: Regular Follow Up Appointments: Provider,Not a Local [Primary Care Provider] - [facility] [Provider Group] Forms: [employer] Info Instructions
[2023-10-18 08:38] VITALS: BP 111/75; PULSE 92; RESP 16; TEMP 36.9; O2SAT 98
[2023-10-18] MEDS: DOCUSATE SODIUM 100 MG CAPSULE PO (09:39)
[2023-10-18 18:07] LABS: Rapid Plasma Reagin (RPR) Non Reactive (Non Reactive)
== END 2023-10-18 11:55 | disposition home or self-care (01) | DRG 560 ==
LOC: OB OUT 20:38 → OB 20:38
PROVIDERS: Admitting Provider Advanced Practice Midwife; Visit Provider Advanced Practice Midwife
DX: O62.3 Precipitate labor (principal); O99.824 Streptococcus B carrier state complicating childbirth; O26.893 Other specified pregnancy related conditions, third trimester; O99.344 Other mental disorders complicating childbirth; F41.9 Anxiety disorder, unspecified; F32.A Depression, unspecified; Z67.41 Type O blood, Rh negative; R03.0 Elevated blood-pressure reading, without diagnosis of hypertension; Z3A.39 39 weeks gestation of pregnancy; Z37.0 Single live birth
CPT/HCPCS: 36415; 82565; 84450; 84460; 84520; 85027; 85461; 86592; A9270; J2791